=== PATIENT | female | born 1945 | race Caucasian/White ===

== ENCOUNTER 2020-11-27 12:45 | Emergency (ER) | payer OTHER ==
[~2020-11-27] VITALS: Ht 165.1 cm; Wt 81.7 kg
[2020-11-27 13:54] LABS: ABSOLUTE NEUTROPHILS 7.8 thou/uL (1.4-8.2); BASOPHILS 0.3 % (0.0-2.0); EOSINOPHILS 2.7 % (0.0-3.0); HEMATOCRIT 39.3 % (37.0-47.0); HEMOGLOBIN 13.1 gm/dL (12.0-15.0); LYMPHOCYTES 23.6 % (24.0-44.0); MCH 30.8 pg (26.0-34.0); MCHC 33.3 g/dL (28.0-37.0); MCV 92.6 fL (80.0-100.0); PLATELET COUNT 303 thou/uL (150-400); POLYS 64.4 % (36.0-66.0); RBC 4.24 mil/uL (4.20-5.00); RDW 12.3 % (10.5-14.5); WBC 12.2 thou/uL (4.0-11.0)
[2020-11-27 14:06] LABS: ANION GAP 9 mmol/L (7-16); BUN 24 mg/dL (7-18); CALCIUM 9.6 mg/dL (8.5-10.1); CHLORIDE 101 mmol/L (98-107); CO2 26 mmol/L (21-32); CREATININE 0.9 mg/dL (0.6-1.0); GLUCOSE 163 mg/dL (74-106); POTASSIUM 3.9 mmol/L (3.5-5.1); SODIUM 136 mmol/L (136-145)
[2020-11-27 14:17] LABS: ALBUMIN 3.6 g/dL (3.4-5.0); DIRECT BILIRUBIN < 0.1 mg/dL (<0.1-0.2); LIPASE 135 U/L (73-393); MAGNESIUM 1.9 mg/dL (1.8-2.4); SGOT 34 U/L (15-37); SGPT 54 U/L (14-59); TOTAL BILIRUBIN 0.3 mg/dL (0.2-1.0); TOTAL PROTEIN 7.4 g/dL (6.4-8.2); TROPONIN-I <0.06 ng/mL (<0.06)
[2020-11-27 15:07] LABS: URINE BILIRUBIN NEGATIVE (Negative); URINE BLOOD NEGATIVE (Negative); URINE CLARITY CLEAR; URINE COLOR YELLOW; URINE GLUCOSE-RANDOM* NEGATIVE (Negative); URINE KETONES NEGATIVE (Negative); URINE LEUKOCYTES-REFLEX NEGATIVE (Negative); URINE NITRITE-REFLEX NEGATIVE (Negative); URINE PROTEIN (DIPSTICK) NEGATIVE (Negative); URINE SPECIFIC GRAVITY >= 1.030 (1.005-1.035); URINE UROBILINOGEN 0.2 E.U./dl (0.2-1.0)
[2020-11-27 15:15] VITALS: BP 149/59
[2020-11-27] MEDS ORDERED: ULTRAM 50MG TAB50 MG PO (15:23)
[2020-11-27] MEDS ORDERED: ROBAXIN 750 MG750 MG PO (15:23)
--- NOTE | 2020-11-30 07:21 | EKG ---
[facility] [place] [address] ELECTROCARDIOGRAM REPORT Name: HEATH COX Room #: DEP Kay#: [id number] Admission: 11/27/20 Attend Phys: Discharge: 11/27/20 Date of : 41 Report #: [id number] [facility] ED Test Date: 2020-11-27 Test Time: 12:50:40 Pat Name: HEATH COX Department: Room: Gender: F Sales Service Technician: LAURENT : 1945 Requested By: Valentino Brush Order Number: [id number] MD: Clemente Cárdenas Measurements Intervals [place] Rate: 77 P: 42 MN: 171 QRS: 21 QRSD: 91 T: 57 QT: 374 QTc: 424 Interpretive Statements Sinus rhythm LVH by voltage Artifact in lead(s) I,II,III,aVR,aVL,V1,V2,V3,V4,V5,V6 No previous ECG available for comparison Electronically Signed On 11-30-2020 7:21:45 INVESTOR RELATIONS DIRECTOR by Clemente Cárdenas [email or web address] <ELECTRONICALLY SIGNED> By: Clemente Cárdenas MD, [facility] 11/30/20720 1250 1250 Clemente Cárdenas MD, FAC /EPI
== END 2020-11-27 19:25 | disposition home or self-care (01) ==
LOC: ER 12:45
PROVIDERS: Emergency Medicine
DX: R10.13 Epigastric pain (principal); M54.9 Dorsalgia, unspecified; I10 Essential (primary) hypertension; E78.5 Hyperlipidemia, unspecified; Z88.8 Allergy status to other drugs, medicaments and biological substances